=== PATIENT | female | born 2000 | race Caucasian/White ===

== ENCOUNTER 2019-12-16 15:13 | Outpatient (CLI) | payer MEDICAID ==
[2019-12-16 15:46] LABS: APPEARANCE,URINE CLEAR; BILIRUBIN,URINE NEGATIVE (NEGATIVE); COLOR,URINE YELLOW; GLUCOSE, URINE NEGATIVE (NEGATIVE); KETONES,URINE NEGATIVE (NEGATIVE); LEUKOCYTE ESTERASE,URINE NEGATIVE (NEGATIVE); NITRITE,URINE NEGATIVE (NEGATIVE); PROTEIN,URINE NEGATIVE (NEGATIVE); URINE SPECIFIC GRAVITY 1.018; UROBILINOGEN,URINE NEGATIVE mg/dL (<2.0)
[2019-12-16 16:06] LABS: URINE AMPHETAMINES SCREEN NEGATIVE; URINE BARBITURATES SCREEN NEGATIVE; URINE BENZODIAZEPINES SCREEN NEGATIVE; URINE COCAINE SCREEN NEGATIVE; URINE MARIJUANA (THC) SCREEN NEGATIVE; URINE METHADONE SCREEN NEGATIVE; URINE PHENCYCLIDINE SCREEN NEGATIVE
--- NOTE | 2019-12-16 17:10 | Non Stress Test Report ---
Non Stress Test Datetime Report Generated by CPN: 12/16/2019 17:09 DEMOGRAPHIC EGA NST: 35.3 INDICATION Indication for Study (NST) Other: LC - pelvic pressure and pain VITAL SIGNS Temperature - NST: 97.7 Pulse - NST: 86 RESP - NST: 18 NBPSYS NST: 120 NBPDIA NST: 68 URINE RESULTS Urine Protein, NST: Negative Urine Ketones - NST: Negative Urine Glucose - NST: Negative Urine Blood - NST: Negative MONITORING Monitor Explained: Monitor Explained; Test Explained; Patient Verbalized Understanding Time on Monitor: 12/16/2019 15:25 Time off Monitor: 12/16/2019 16:10 NST Duration: 45 NST INTERVENTIONS NST Interventions: PO Hydration Physician Notified NST: A. Bobo, CNM BABY A: [id number] BABY A Movement : Present Contraction Frequency : none FHR Baseline : 130 Accelerations : 15X15 Decelerations : None Variability : Moderate 6-25bpm NST Review: Meets Criteria for Reactive NST NST Review and Verified By : Nicole Zapata RN NST Results: Reactive NST REPORT Report Trigger: Send Report
== END 2019-12-16 16:22 | disposition home or self-care (01) ==
LOC: LC 15:13
PROVIDERS: ATTEND Obstetrics & Gynecology
PROC: 4A1HXCZ Monitoring of Products of Conception, Cardiac Rate, External Approach (ICD-10-PCS; principal; 2019-12-16)
DX: O47.03 False labor before 37 completed weeks of gestation, third trimester (principal); Z3A.35 35 weeks gestation of pregnancy
CPT/HCPCS: 59025; 80307; 81005

== ENCOUNTER 2020-01-09 03:34 | Inpatient (IN) | payer MEDICAID ==
[2020-01-09] MEDS ORDERED: ACETAMINOPHEN 325 MG TABLET ONE (04:54)
[2020-01-09] MEDS ORDERED: HYDROXYZINE PAMOATE 50 MG CAPSULE ONE (05:17)
[2020-01-09] MEDS ORDERED: ONDANSETRON HCL INJ/PF 4 MG/2 ML SDV ONE (05:56)
[2020-01-09 06:16] LABS: CHLAM PCR NOT DETECTED (NOT DETECT)
[2020-01-09 06:18] LABS: URINE AMPHETAMINES SCREEN NEGATIVE; URINE BARBITURATES SCREEN NEGATIVE; URINE BENZODIAZEPINES SCREEN NEGATIVE; URINE COCAINE SCREEN NEGATIVE; URINE MARIJUANA (THC) SCREEN NEGATIVE; URINE METHADONE SCREEN NEGATIVE; URINE PHENCYCLIDINE SCREEN NEGATIVE
[2020-01-09] MEDS ORDERED: ONDANSETRON HCL INJ/PF 4 MG/2 ML SDV IV ONE (06:18)
[2020-01-09] MEDS ORDERED: ACETAMINOPHEN 325 MG TABLET PO ONE (06:18)
[2020-01-09] MEDS ORDERED: HYDROXYZINE PAMOATE 50 MG CAPSULE PO ONE (06:18)
[2020-01-09 06:46] LABS: EPITHELIALS (WET MOUNT) 3+ EPITHELIALS SEEN; RBCS (WET MOUNT) RARE RBCS SEEN; T.VAGINALIS (WET MOUNT) NO TRICHOMONAS SEEN; WBCS (WET MOUNT) FEW WBCS SEEN; YEAST (WET MOUNT) NO YEAST SEEN
[2020-01-09 06:48] LABS: APPEARANCE,URINE CLOUDY; BILIRUBIN,URINE NEGATIVE (NEGATIVE); COLOR,URINE YELLOW; GLUCOSE, URINE NEGATIVE (NEGATIVE); KETONES,URINE NEGATIVE (NEGATIVE); LEUKOCYTE ESTERASE,URINE TRACE (NEGATIVE); NITRITE,URINE NEGATIVE (NEGATIVE); PROTEIN,URINE NEGATIVE (NEGATIVE); URINE SPECIFIC GRAVITY 1.017; UROBILINOGEN,URINE NEGATIVE mg/dL (<2.0)
[2020-01-09] MEDS ORDERED: MORPHINE SULFATE 10 MG/ML INJ IM ONE (07:32)
[2020-01-09] MEDS ORDERED: MORPHINE SULFATE 10 MG/ML INJ IV ONE (07:32)
[2020-01-09] MEDS ORDERED: MORPHINE SULFATE 10 MG/ML INJ ONE (07:52)
[2020-01-09] MEDS ORDERED: RINGERS SOLUTION,LACTATED 1,000 ML IV PRN (09:18)
[2020-01-09] MEDS ORDERED: RINGERS SOLUTION,LACTATED 1,000 ML IV ONE (09:18)
[2020-01-09] MEDS ORDERED: MISOPROSTOL 0.2 MG TABLET ONE ×2 (09:52→15:04)
[2020-01-09] MEDS ORDERED: OXYTOCIN 10 UNIT/ML VIAL ONE (09:52)
[2020-01-09] MEDS ORDERED: EPHEDRINE SULFATE INJ 50 MG/1 ML AMPULE ONE (09:53)
[2020-01-09] MEDS ORDERED: FENTANYL/BUPIVACAINE/NS/PF 300 MCG/150 ML RTUINJ EPI ONE (09:53)
[2020-01-09] MEDS ORDERED: BUPIVACAINE HCL 0.25 % INJ/PF (2.5 MG/1 ML) 30 ML VIAL ONE (09:54)
[2020-01-09] MEDS ORDERED: LIDOCAINE 1% INJ-PF (10 MG/ML) 30 ML SDV ONE (09:54)
[2020-01-09] MEDS ORDERED: OXYTOCIN/NORMAL SALINE 20 UNIT/1,000 ML RTUINJ ONE (09:54)
[2020-01-09] MEDS ORDERED: FENTANYL CITRATE INJ/PF 100 MCG/2 ML AMPUL ONE (09:55)
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
[2020-01-09 11:21] LABS: HEMATOCRIT 39.5 % (36.0-47.0); HEMOGLOBIN 13.3 g/dL (12.0-15.5); MEAN CORPUSCULAR HEMOGLOBIN 30.4 pg (27.0-33.4); MEAN CORPUSCULAR HGB CONC 33.7 g/dL (32.0-36.0); MEAN CORPUSCULAR VOLUME 90 fl (80-97); PLATELET COUNT 251 10^3/uL (150-450); RED BLOOD COUNT 4.37 10^6/uL (3.72-5.28); RED CELL DISTRIBUTION WIDTH 14.1 % (11.5-14.0); WHITE BLOOD COUNT 23.8 10^3/uL (4.0-10.5)
[2020-01-09 11:52] LABS: ABSOLUTE LYMPHOCYTES# (MANUAL) 1.4 10^3/uL (0.5-4.7); ABSOLUTE MONOCYTES # (MANUAL) 0.5 10^3/uL (0.1-1.4); BASOPHILS % (MANUAL) 0 % (0-2); EOSINOPHILS % (MANUAL) 0 % (0-6); LYMPHOCYTES % (MANUAL) 6 % (13-45); MONOCYTES % (MANUAL) 2 % (3-13); SEGMENTED NEUTROPHILS % (MAN) 92 % (42-78); TOTAL CELLS COUNTED 100
[2020-01-09 11:53] LABS: ANISOCYTOSIS SLIGHT; PLATELET COMMENT ADEQUATE; TEAR DROP CELLS SLIGHT
[2020-01-09] MEDS ORDERED: ACETAMINOPHEN 650 MG SUPP.RECT PR PRN (14:15)
[2020-01-09] MEDS ORDERED: DIPH/PERTUSS(ACELL)/TETANUS VAC/PF 0.5 ML SYR (>=10YO) IM PRN (14:15)
[2020-01-09] MEDS ORDERED: PSEUDOEPHEDRINE HCL 30 MG TABLET PO PRN (14:15)
[2020-01-09] MEDS ORDERED: NA PHOS,M-B/NA PHOS,DI-BA (ADULT) 133 ML ENEMA PR PRN (14:15)
[2020-01-09] MEDS ORDERED: MEASLES,MUMPS&RUBELLA VACC/PF 0.5 ML VIAL SUBCUT PRN (14:15)
[2020-01-09] MEDS ORDERED: BENZOCAINE/MENTHOL AEROSOL SPRAY 56 ML TOP PRN (14:15)
[2020-01-09] MEDS ORDERED: PROMETHAZINE HCL 25 MG SUPP.RECT PR PRN (14:15)
[2020-01-09] MEDS ORDERED: ACETAMINOPHEN WITH CODEINE #3 TABLET PO PRN ×2 (14:15)
[2020-01-09] MEDS ORDERED: GLYCERIN/WITCH HAZEL LEAF 1 EACH MED..WIPE TP PRN (14:15)
[2020-01-09] MEDS ORDERED: MAGNESIUM HYDROXIDE SUSP 30 ML UDCUP PO PRN (14:15)
[2020-01-09] MEDS ORDERED: PROMETHAZINE HCL 25 MG TABLET PO PRN (14:15)
[2020-01-09] MEDS ORDERED: DIBUCAINE 1% OINTMENT 28 GM TP PRN (14:15)
[2020-01-09] MEDS ORDERED: DIPHENHYDRAMINE HCL 25 MG CAPSULE PO PRN (14:15)
[2020-01-09] MEDS ORDERED: ZOLPIDEM TARTRATE 5 MG TABLET PO PRN (14:15)
[2020-01-09] MEDS ORDERED: OXYTOCIN/NORMAL SALINE 20 UNIT/1,000 ML RTUINJ IV PRN (14:15)
[2020-01-09] MEDS ORDERED: PROMETHAZINE HCL INJ 25 MG/1 ML VIAL IV PRN (14:15)
[2020-01-09] MEDS ORDERED: MISOPROSTOL 0.2 MG TABLET PR ONE (14:45)
[2020-01-09] MEDS ORDERED: IBUPROFEN 800 MG TABLET ONE (15:04)
[2020-01-09] MEDS ORDERED: PIPERACILLIN/TAZOBACTAM 3.375 GM VIAL IV SCH (16:00)
--- NOTE | 2020-01-09 16:09 | Delivery Summary ---
Del Sum A-C Datetime Report Generated by CPN: 01/09/2020 16:09 DELIVERY PERSONNEL DELIVERY PERSONNEL: [id number] Delivery Doctor:: Ade Hayes MD Nurse Material Preparation Worker Certified:: Caroline Ramirez CNM Labor and Delivery Nurse:: DIMAS Ruiz Labor and Delivery Nurse:: Kera Zamarripa RN Nursery Nurse:: Maday Lott RN Nursery Nurse:: Kari GARNER RN Medical Device Sales/LEAD CASTER: Rita Will CNA II Medical Device Sales/NIKITA: [facility] Additional Personnel: : Iris Espino RN MATERNAL INFORMATION Delivery Anesthesia: Epidural Medications After Delivery: Pitocin Bolus-Please Comment; Cytotec 1000mcg Per Rectum/Vagina Estimated Blood Loss (ml): 970 Delivery QBL: 970 LABOR SUMMARY EDC: 01/17/2020 00:00 No. Babies in Womb: 1 Attempted: No Labor Anesthesia: Epidural LABOR INFORMATION Reason for Induction: Not Applicable Onset of Labor: 01/09/2020 02:45 Oxytocin: N/A Group B Beta Strep: Negative Antibiotics # of Doses: 0 Steroids Given: None Reason Steroids Not Administered: Not Applicable MEMBRANES Membranes Rupture Method: Spontaneous Rupture of Membranes: 01/09/2020 12:14 Length of Rupture (hr): 1.58 Amniotic Fluid Color: Moderate Meconium Amniotic Fluid Amount: Small Amniotic Fluid Odor: None STAGES OF LABOR Stage 3 hr: 0 Stage 3 min: 2 Total Time in Labor hr: 11 Total Time in Labor min: 6 VAGINAL DELIVERY Episiotomy: None Laceration #1: Perineal Laceration Extension #1: Second Degree Laceration Repair: Yes Sponge Count Correct: N/A Sharps Count Correct: N/A BABY A INFORMATION Delivery Date/Time: 01/09/2020 13:49 Method of Delivery: Vaginal Nurse Controlled Delivery: No Born in Route : No : N/A Forceps: N/A Vacuum Extraction: Successful Shoulder Dystocia : Yes SHOULDER DYSTOCIA BABY A 1st Intervention to Resolve: McRobert's Maneuver 2nd Intervention to Resolve: Suprapubic Pressure 3rd Intervention to Resolve: Posterior Arm Release Verify NO Fundal Pressure: No Fundal Pressure Applied Shoulder Dystocia Comments: 1 min, 50 sec from head to delivery PRESENTATION/POSITION BABY A Presentation: Cephalic Cephalic Presentation: Vertex Breech Presentation: N/A PLACENTA INFORMATION BABY A Placenta Delivery Time : 01/09/2020 13:51 Placenta Method of Delivery: Spontaneous Placenta Status: Delivered SCORES BABY A Heart Rate 1 min: >100 bpm Resp Effort 1 min: Slow, Irregular Reflex Irritability 1 min: No Response Muscle Tone 1 min: Flaccid Color 1 min: Blue/Pale Resuscitation Effort 1 min: Tactile Stimulation; PPV/NCPAP SCORE 1 MIN: 3 Heart Rate 5 min: >100 bpm Resp Effort 5 min: Slow, Irregular Reflex Irritability 5 min: Grimace Muscle Tone 5 min: Some Flexion of Extremities Color 5 min: Body [place], Extremities Blue Resuscitation Effort 5 min: Tactile Stimulation; PPV/NCPAP SCORE 5 MIN: 6 Heart Rate 10 min: >100 bpm Resp Effort 10 min: Good Cry Reflex Irritability 10 min: Cough or Sneeze or Pulls Away Muscle Tone 10 min: Active Motion Color 10 min: Body [place], Extremities Blue SCORE 10 MIN: 9 INFANT INFORMATION BABY A Gestational Age at Delivery: 38.6 Gestational Status: Early Term- 37- 38.6 Weeks Infant Outcome : Liveborn Infant Condition : Stable Infant Sex: Female IDENTIFICATION BABY A Verification Date/Time: 01/09/2020 13:49 ID Band Number: [id number] Mother's Name Verified: Yes Infant RN Verifying Infant: S Tiara RN WEIGHT/LENGTH BABY A Birthweight (gm): 3855 Weight (lb): 8 Infant Weight (oz): 8 Length (in): 20.75 Infant Length (cm): 52.71 CORD INFORMATION BABY A No. Cord Vessels: 3 (Annotations: Data stored by [facility] on behalf of user) Nuchal Cord : N/A Cord Blood Taken: Yes-For Storage (Mom's Blood type +) Suction: Mouth; Nose BABY B INFORMATION : N/A SIGNATURES : I personally evaluated and examined the patient in conjunction with the P and agree with the assessment, treatment plan and disposition.
[2020-01-09 16:34] LABS: INTERNATIONAL RATION (INR) 0.99; PROTHROMBIN TIME 13.1 SEC (11.4-15.4)
[2020-01-09 16:40] LABS: HEMATOCRIT 38.8 % (36.0-47.0); HEMOGLOBIN 13.2 g/dL (12.0-15.5); MEAN CORPUSCULAR HEMOGLOBIN 30.5 pg (27.0-33.4); MEAN CORPUSCULAR HGB CONC 33.9 g/dL (32.0-36.0); MEAN CORPUSCULAR VOLUME 90 fl (80-97); PLATELET COUNT 250 10^3/uL (150-450); RED BLOOD COUNT 4.31 10^6/uL (3.72-5.28); RED CELL DISTRIBUTION WIDTH 13.9 % (11.5-14.0)
[2020-01-09 16:43] LABS: PARTIAL THROMBOPLASTIN TIME 28.3 SEC (23.5-35.8)
[2020-01-09 17:36] LABS: ABSOLUTE LYMPHOCYTES# (MANUAL) 1.3 10^3/uL (0.5-4.7); ABSOLUTE MONOCYTES # (MANUAL) 2.2 10^3/uL (0.1-1.4); BASOPHILS % (MANUAL) 0 % (0-2); EOSINOPHILS % (MANUAL) 0 % (0-6); LYMPHOCYTES % (MANUAL) 4 % (13-45); MONOCYTES % (MANUAL) 7 % (3-13); PLATELET COMMENT ADEQUATE; RBC MORPHOLOGY COMMENT NORMO-CYTIC/CHROMIC; SEGMENTED NEUTROPHILS % (MAN) 89 % (42-78); TOTAL CELLS COUNTED 100
[2020-01-09 17:38] LABS: WHITE BLOOD COUNT 31.6 10^3/uL (4.0-10.5)
[2020-01-09] MEDS: DOCUSATE SODIUM 100 MG CAPSULE PO SCH (17:48)
[2020-01-09] MEDS: FERROUS SULFATE 325 MG TABLET PO SCH (17:48)
[2020-01-09] MEDS: PIPERACILLIN SODIUM/TAZOBACTAM 3.375 GM in NORMAL SALINE 100 ML IV SCH (18:02)
[2020-01-09] MEDS: IBUPROFEN 800 MG TABLET PO SCH (23:03)
[2020-01-09] MEDS: FAMOTIDINE 20 MG TABLET PO SCH (23:04)
[2020-01-10] MEDS: PIPERACILLIN SODIUM/TAZOBACTAM 3.375 GM in NORMAL SALINE 100 ML IV SCH ×4 (00:55→18:40)
[2020-01-10 06:46] LABS: HEMATOCRIT 30.2 % (36.0-47.0); MEAN CORPUSCULAR HEMOGLOBIN 31.2 pg (27.0-33.4); MEAN CORPUSCULAR HGB CONC 34.6 g/dL (32.0-36.0); MEAN CORPUSCULAR VOLUME 90 fl (80-97); PLATELET COUNT 191 10^3/uL (150-450); RED BLOOD COUNT 3.35 10^6/uL (3.72-5.28); RED CELL DISTRIBUTION WIDTH 14.3 % (11.5-14.0)
[2020-01-10 06:47] LABS: HEMOGLOBIN 10.4 g/dL (12.0-15.5)
[2020-01-10] MEDS: IBUPROFEN 800 MG TABLET PO SCH ×3 (06:55→21:30)
--- NOTE | 2020-01-10 08:41 | Delivery Summary ---
Del Sum A-C Datetime Report Generated by CPN: 01/10/2020 08:41 DELIVERY PERSONNEL DELIVERY PERSONNEL: [id number] Delivery Doctor:: Ade Hayes MD Nurse Banjo Repairer Certified:: Caroline Ramirez CNM Labor and Delivery Nurse:: DIMAS Ruiz Labor and Delivery Nurse:: Kera Zamarripa RN Nursery Nurse:: Maday Lott RN Nursery Nurse:: Kari GARNER RN Rn Integrity/FRIT COATER: Rita Will CNA II Rn Integrity/NIKITA: [facility] Additional Personnel: : Iris Espino RN MATERNAL INFORMATION Delivery Anesthesia: Epidural Medications After Delivery: Pitocin Bolus-Please Comment; Cytotec 1000mcg Per Rectum/Vagina Estimated Blood Loss (ml): 970 Delivery QBL: 970 Provider Comments: Called to assist with delivery due to FHR down to 80's. pt with poor effort initially but improved and then reviewed with patient concern for FHR and still somewhat remote from delivery. 01/01/20 with 7#3oz. patient verbalized understanding of risks of operative vaginal delivery at c/c/+3. Kiwi placed and on next contraction pressure applied to green zone for the 3 maternal efforts with change in station noted then one pop off. At this time significant change noted and VAVD abandoned for maternal effort and then maternal effort alone delivered head. Unable to deliver remainder of body therefore suprapubic and Karly performed with still unable to deliver head. At this time Prado screw attempted and unable to reach anterior shoulder. maneuvers again attempted and still unable to reach anterior shoulder or posterior shoulder. After additional repeat of all maneuvers the posterior shoulder was then able to be delivered after delivering the right hand anterioly across body Anterior shoulder was left shoulder. Posterior shoulder was right. 1minute 50 sec dystocia. Reviewed dystocia with patient and recommended Primary section for next delivery. Placenta delivered intact spontaneously. No nuchal cord. 2nd degree perineal laceration repaired in usual fashion. Good hemostasis. Hemorrhage noted and cytotec 1000mcg per rectum given. Bleeding and uterine tone significantly improved. baby to nursery for eval. Meconium also noted. LABOR SUMMARY EDC: 01/17/2020 00:00 No. Babies in Womb: 1 Attempted: No Labor Anesthesia: Epidural LABOR INFORMATION Reason for Induction: Not Applicable Onset of Labor: 01/09/2020 02:45 Oxytocin: N/A Group B Beta Strep: Negative Antibiotics # of Doses: 0 Steroids Given: None Reason Steroids Not Administered: Not Applicable MEMBRANES Membranes Rupture Method: Spontaneous Rupture of Membranes: 01/09/2020 12:14 Length of Rupture (hr): 1.58 Amniotic Fluid Color: Moderate Meconium Amniotic Fluid Amount: Small Amniotic Fluid Odor: None STAGES OF LABOR Stage 3 hr: 0 Stage 3 min: 2 Total Time in Labor hr: 11 Total Time in Labor min: 6 VAGINAL DELIVERY Episiotomy: None Laceration #1: Perineal Laceration Extension #1: Second Degree Laceration Repair: Yes Sponge Count Correct: N/A Sharps Count Correct: N/A BABY A INFORMATION Infant Delivery Date/Time: 01/09/2020 13:49 Method of Delivery: Vaginal Method of Delivery: Vaginal Nurse Controlled Delivery: No Born in Route : No : N/A Forceps: N/A Vacuum Extraction: Successful Shoulder Dystocia : Yes SHOULDER DYSTOCIA BABY A 1st Intervention to Resolve: McRobert's Maneuver 2nd Intervention to Resolve: Suprapubic Pressure 3rd Intervention to Resolve: Posterior Arm Release Verify NO Fundal Pressure: No Fundal Pressure Applied Shoulder Dystocia Comments: 1 min, 50 sec from head to delivery PRESENTATION/POSITION BABY A Presentation: Cephalic Cephalic Presentation: Vertex Breech Presentation: N/A PLACENTA INFORMATION BABY A Placenta Delivery Time : 01/09/2020 13:51 Placenta Method of Delivery: Spontaneous Placenta Status: Delivered SCORES BABY A Heart Rate 1 min: >100 bpm Resp Effort 1 min: Slow, Irregular Reflex Irritability 1 min: No Response Muscle Tone 1 min: Flaccid Color 1 min: Blue/Pale Resuscitation Effort 1 min: Tactile Stimulation; PPV/NCPAP SCORE 1 MIN: 3 Heart Rate 5 min: >100 bpm Resp Effort 5 min: Slow, Irregular Reflex Irritability 5 min: Grimace Muscle Tone 5 min: Some Flexion of Extremities Color 5 min: Body [place], Extremities Blue Resuscitation Effort 5 min: Tactile Stimulation; PPV/NCPAP SCORE 5 MIN: 6 Heart Rate 10 min: >100 bpm Resp Effort 10 min: Good Cry Reflex Irritability 10 min: Cough or Sneeze or Pulls Away Muscle Tone 10 min: Active Motion Color 10 min: Body [place], Extremities Blue SCORE 10 MIN: 9 INFORMATION BABY A Gestational Age at Delivery: 38.6 Gestational Status: Early Term- 37- 38.6 Weeks Infant Outcome : Liveborn Infant Condition : Stable Infant Sex: Female Infant Sex: Female IDENTIFICATION BABY A Infant Verification Date/Time: 01/09/2020 13:49 ID Band Number: [id number] Mother's Name Verified: Yes Infant RN Verifying : Jerald Menjivar RN WEIGHT/LENGTH BABY A Birthweight (gm): 3855 Weight (lb): 8 Weight (oz): 8 Length (in): 20.75 Infant Length (cm): 52.71 CORD INFORMATION BABY A No. Cord Vessels: 3 (Annotations: Data stored by [facility] on behalf of user) Nuchal Cord : N/A Cord Blood Taken: Yes-For Storage (Mom's Blood type +) Infant Suction: Mouth; Nose ASSESSMENT BABY A Skin to Skin: No BABY B INFORMATION : N/A SIGNATURES Signature: with User ID: [email or web address] : Grace personally evaluated and examined the patient in conjunction with the P and agree with the assessment, treatment plan and disposition.
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
[2020-01-10] MEDS: DOCUSATE SODIUM 100 MG CAPSULE PO SCH ×2 (09:57→18:40)
[2020-01-10] MEDS: PRENATAL VITAMIN W DHA CAPSULE PO SCH (09:57)
[2020-01-10] MEDS: SENNOSIDES/DOCUSATE 8.6-50 MG 1 EACH TABLET PO SCH (09:57)
[2020-01-10] MEDS: FERROUS SULFATE 325 MG TABLET PO SCH ×2 (09:57→18:40)
[2020-01-10] MEDS: FAMOTIDINE 20 MG TABLET PO SCH ×2 (09:58→21:30)
[2020-01-10 11:02] LABS: PATH REVIEW PATHOLOGIST REVIEWED
[2020-01-11] MEDS: IBUPROFEN 800 MG TABLET PO SCH (06:45)
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
[2020-01-11 10:02] VITALS: BP 137/73
[2020-01-11] MEDS: FERROUS SULFATE 325 MG TABLET PO SCH (10:10)
[2020-01-11] MEDS: FAMOTIDINE 20 MG TABLET PO SCH (10:11)
[2020-01-11] MEDS: SENNOSIDES/DOCUSATE 8.6-50 MG 1 EACH TABLET PO SCH (10:11)
[2020-01-11] MEDS: DOCUSATE SODIUM 100 MG CAPSULE PO SCH (10:11)
[2020-01-11] MEDS: PRENATAL VITAMIN W DHA CAPSULE PO SCH (10:11)
== END 2020-01-11 13:45 | disposition home or self-care (01) | DRG 807 ==
LOC: LC 03:34 → LR 09:19 → 2S 16:13
PROVIDERS: ADMIT Student in an Organized Health Care Education/Training Program; ATTEND Student in an Organized Health Care Education/Training Program
PROC: 10D07Z6 Extraction of Products of Conception, Vacuum, Via Natural or Artificial Opening (ICD-10-PCS; principal; 2020-01-09)
PROC: 0KQM0ZZ Repair Perineum Muscle, Open Approach (ICD-10-PCS; 2020-01-09)
PROC: 3E0234Z Introduction of Serum, Toxoid and Vaccine into Muscle, Percutaneous Approach (ICD-10-PCS; 2020-01-11)
DX: O24.420 Gestational diabetes mellitus in childbirth, diet controlled (principal); Z37.0 Single live birth; O66.0 Obstructed labor due to shoulder dystocia; O76 Abnormality in fetal heart rate and rhythm complicating labor and delivery; O70.1 Second degree perineal laceration during delivery; Z23 Encounter for immunization; Z3A.38 38 weeks gestation of pregnancy
CPT/HCPCS: 36415; 80307; 81005; 84112; 85025; 85027; 85610; 85730; 86592; 86850; 86900; 86901; 87210; 87491; 87591; 88307; 90715; J2270; J2405; J2543; J2590; J3010; J3490; J7050

== ENCOUNTER 2020-01-13 22:36 | Emergency (ER) | payer MEDICAID ==
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
[2020-01-13] MEDS ORDERED: ACETAMINOPHEN 325 MG TABLET PO ONE (23:13)
[2020-01-14 00:06] LABS: ABSOLUTE EOSINOPHILS # (AUTO) 0.4 10^3/uL (0.0-0.6); ABSOLUTE MONOCYTES (AUTO) 0.6 10^3/uL (0.1-1.4); ABSOLUTE NEUT (AUTO) 8.4 10^3/uL (1.7-8.2); BASOPHILS % (AUTO) 0.3 % (0-2); EOSINOPHILS % (AUTO) 2.8 % (0-6); HEMATOCRIT 35.5 % (36.0-47.0); HEMOGLOBIN 12.1 g/dL (12.0-15.5); LYMPHOCYTES % (AUTO) 23.8 % (13-45); MEAN CORPUSCULAR HEMOGLOBIN 30.8 pg (27.0-33.4); MEAN CORPUSCULAR VOLUME 91 fl (80-97); MONOCYTES % (AUTO) 5.2 % (3-13); PLATELET COUNT 301 10^3/uL (150-450); RED BLOOD COUNT 3.92 10^6/uL (3.72-5.28); RED CELL DISTRIBUTION WIDTH 14.7 % (11.5-14.0); SEGMENTED NEUTROPHILS % (AUTO) 67.9 % (42-78); TOTAL CELLS COUNTED % (AUTO) 100 %; WHITE BLOOD COUNT 12.4 10^3/uL (4.0-10.5)
[2020-01-14 00:14] LABS: APPEARANCE,URINE SLIGHTLY-CLOUDY; BILIRUBIN,URINE NEGATIVE (NEGATIVE); COLOR,URINE YELLOW; GLUCOSE, URINE NEGATIVE (NEGATIVE); KETONES,URINE NEGATIVE (NEGATIVE); PROTEIN,URINE NEGATIVE (NEGATIVE); URINE SPECIFIC GRAVITY 1.016; UROBILINOGEN,URINE NEGATIVE mg/dL (<2.0)
[2020-01-14 00:23] LABS: ALBUMIN 3.4 g/dL (3.5-5.0); ALKALINE PHOSPHATASE 146 U/L (38-126); ANION GAP 9 (5-19); ASPARTATE AMINO TRANSFERASE 44 U/L (14-36); BILIRUBIN,DIRECT 0.3 mg/dL (0.0-0.4); BILIRUBIN,TOTAL 0.4 mg/dL (0.2-1.3); BLOOD UREA NITROGEN 12 mg/dL (7-20); CARBON DIOXIDE 26 mmol/L (22-30); CHLORIDE 104 mmol/L (98-107); GLUCOSE 91 mg/dL (75-110); POTASSIUM 3.9 mmol/L (3.6-5.0)
[2020-01-14] MEDS ORDERED: ACETAMINOPHEN 325 MG TABLET PO ONE (02:31)
--- NOTE | 2020-01-14 03:23 | RADIOLOGY REPORT (SQ) ---
EXAM DESCRIPTION: US PELVIS COMPLETED DATE/TME: 01/14/2020 02:21 CLINICAL HISTORY: 19 years Female, post 4days with vaginal bleeding Comparison: None. Technique: Transabdominal. LIMITATIONS: None. FINDINGS: 15-cm uterus, 1.8 cm thick heterogeneous endometrial stripe including a 2.3 cm hypoechoic region/clot, 4-cm right ovary, and nonvisualized left ovary appear otherwise unremarkable in size, shape, echotexture, and vascularity. No free fluid. IMPRESSION: 1. 15 cm post gravid uterus with 1.8 cm thickened heterogeneous endometrial cavity probably due to hemorrhage-clot. Cannot exclude retained products of conception. 2. Nonvisualized left ovary.
--- NOTE | 2020-01-14 05:16 | ER Document Report ---
Entered by DUSTIN ONTIVEROS SCRIBE 01/14/20 0220 Acting as scribe for:SHERIN JOINER MD ED General - General Chief Complaint: Abdominal Pain Stated Complaint: VAGINAL BLEEDING,ABDOMINAL AND VAGINAL PAIN Time Seen by Provider: 01/13/20 23:09 Primary Care Provider: DANIA MORALES MD [Primary Care Provider] - Follow up as needed Mode of Arrival: Ambulatory Information source: Patient Notes: 19-year-old female presents to the emergency department 4 days with abdominal pain and vaginal bleeding. Patient stated that she received stitches for perineal tear during labor and was told that if she soiled a pad faster than an hour or had any blood clots to go to the ED. Patient explained that she has had pain and blood clots every time she uses the bathroom. Patient mentions that she has not been able to rest due to significant other working. Patient states that she has been pushing, lifting and pulling the past few days. TRAVEL OUTSIDE OF THE [place] IN LAST 30 DAYS: No - Related Data Allergies/Adverse Reactions: No Known Allergies Allergy (Verified 01/09/20 06:17) Home Medications: zoloft Past Medical History - General Information source: Patient - Social History Smoking Status: Never Smoker Cigarette use (# per day): No Chew tobacco use (# tins/day): No Frequency of alcohol use: None Drug Abuse: None Lives with: Family Family History: Reviewed & Not Pertinent Patient has suicidal ideation: No Patient has homicidal ideation: No GI Medical History: Reports: Hx Gastroesophageal Reflux Disease Skin Medical History: Reports Hx Eczema Psychiatric Medical History: Reports: Hx Anxiety, Hx Depression - Manic Surgical Hx: Negative Review of Systems - Review of Systems Constitutional: No symptoms reported EENT: No symptoms reported Cardiovascular: No symptoms reported Respiratory: No symptoms reported Gastrointestinal: See HPI, Abdominal pain Genitourinary: No symptoms reported Female Genitourinary: See HPI, Vaginal bleeding Musculoskeletal: No symptoms reported Skin: No symptoms reported Hematologic/Lymphatic: No symptoms reported Neurological/Psychological: See HPI, Anxiety -: Yes All other systems reviewed and negative Physical Exam - Vital signs Vitals: Temp Pulse Resp BP Pulse Ox 98.6 F 97 20 131/89 H 97 01/13/20 22:41 01/13/20 22:41 01/13/20 22:41 01/13/20 22:41 01/13/20 22:41 - Notes Notes: Physical Exam: General: Alert, appears tearful and uncomfortable. Anxious. HEENT: Normocephalic. Atraumatic. PERRL. Extraocular movements intact. Oropharynx clear. Neck: Supple. Non-tender. Respiratory: No respiratory distress. Clear and equal breath sounds bilaterally. Cardiovascular: Regular rate and rhythm. Abdominal: RLQ tenderness to palpation. No distension. Normal Bowel Sounds. Back: No gross abnormalities. Extremities: Moves all four extremities. Upper extremities: Normal inspection. Normal ROM. Lower extremities: Normal inspection. No edema. Normal ROM. Neurological: Normal cognition. AAOx4. Normal speech. Skin: Warm. Dry. Normal color. Course - Re-evaluation Re-evalutation: 01/14/20 05:11 Patient resting comfortably in bed not showing any signs of distress at this time and for the past 2+ hours patient has not had any further vaginal bleeding. Patient's pain has subsided as well. With Tylenol. - Vital Signs Vital signs: Temp Pulse Resp BP Pulse Ox 98.0 F 80 16 134/86 H 99 01/14/20 03:17 01/14/20 03:17 01/14/20 03:17 01/14/20 03:17 01/14/20 03:17 - Laboratory Result Diagrams: 01/13/20 23:50 01/13/20 23:50 Laboratory results interpreted by me: 01/13/20 01/13/20 01/13/20 23:50 23:50 23:50 WBC 12.4 H Hct 35.5 L RDW 14.7 H Absolute Neuts (auto) 8.4 H AST 44 H ALT 45 H Alkaline Phosphatase 146 H Albumin 3.4 L Urine Blood LARGE H Leukocyte Esterase Rfl LARGE H Urine Ascorbic Acid 20 H 01/14/20 05:12 Patient's urine appears contaminated due to her recent state. Hemoglobin is stable at this time at 12.4. Patient's abdominal pain has resolved resolved. - Diagnostic Test Radiology reviewed: Image reviewed, Reports reviewed Radiology results interpreted by me: 01/14/20 05:12 Transvaginal pelvic ultrasound non-OB shows the uterus is enlarged due to recent state. There is a small about a 2 cm heterogeneous tissue that most likely is a clot versus retained products of conception. Most likely this is a clot inasmuch as patient did have an episiotomy and and reports that it started bleeding tonight but the bleeding has resolved. Discharge - Discharge Clinical Impression: hemorrhage of vagina Condition: Stable Disposition: HOME, SELF-CARE Additional Instructions: You develop a bleed in the last 24 hours. Your hemoglobin hematocrit is stable and therefore is no need of any transfusion of blood at this time you are hemodynamically stable. Your activity needs to be decreased where you really do not push pull lift any heavy objects and and get some bed rest as much as you can is much as you are now taking care of your young with breast- feeding. Tylenol may be taken as needed if there is any further pain. The ultrasound of your pelvis disclosed a about a 2 cm heterogeneous tissue that could be products of conception that have been retained versus a clot. My belief is that it is a blood clot residual from your hemorrhage. Do follow-up with your [facility] physician within the next 1 to 2 days. Return to the emergency department if there is any fever chills worsening bleeding. Referrals: DANIA MORALES MD [Primary Care Provider] - Follow up as needed I personally performed the services described in the documentation, reviewed and edited the documentation which was dictated to the scribe in my presence, and it accurately records my words and actions.
[2020-01-14 06:05] VITALS: BP 132/95
== END 2020-01-14 06:01 | disposition home or self-care (01) ==
LOC: ER 22:36
DX: O72.1 Other immediate postpartum hemorrhage (principal); O99.89 Other specified diseases and conditions complicating pregnancy, childbirth and the puerperium; R10.9 Unspecified abdominal pain
CPT/HCPCS: 99284; 36415; 87086; 85025; 80053; 81001; 76856; J3490

== ENCOUNTER 2020-04-23 02:20 | Emergency (ER) | payer MEDICAID ==
[2020-04-23 02:28] VITALS: BP 145/97
[2020-04-23] MEDS ORDERED: BUPIVACAINE HCL 0.75% INJ/PF (7.5 MG/1 ML) 10 ML SDV INJ ONE (03:32)
[2020-04-23] MEDS ORDERED: PENICILLIN V POTASSIUM 500 MG TABLET PO ONE (03:32)
--- NOTE | 2020-04-23 03:35 | ER Document Report ---
HPI - HPI Time Seen by Provider: 04/23/20 03:31 Pain Level: 4 Context: Patient is a 19-year-old female that comes the emergency department for chief complaint of dental pain. Pain is in the left lower jaw, she states she has a known wisdom tooth and a broken molar in the back, over the past couple of days pain started radiating up her jaw on the left side towards her ear. She denies sore throat, neck pain, fever, or any other complaints. She is currently breast-feeding. She is taking [id number] medication such as Tylenol but no prescribe medications. Past medical history of anxiety. - REPRODUCTIVE Reproductive: DENIES: : Past Medical History - General Information source: Patient - Social History Smoking Status: Never Smoker Drug Abuse: None Lives with: Family Family History: Reviewed & Not Pertinent Patient has homicidal ideation: No GI Medical History: Reports: Hx Gastroesophageal Reflux Disease Skin Medical History: Reports Hx Eczema Psychiatric Medical History: Reports: Hx Anxiety, Hx Depression - Manic - Immunizations Immunizations up to date: Yes Hx Diphtheria, Pertussis, Tetanus Vaccination: Yes Vertical Provider Document - CONSTITUTIONAL General Appearance: WD/WN, Mild Distress - Patient appears mildly uncomfortable and also anxious but she is not in severe distress - INFECTION CONTROL TRAVEL OUTSIDE OF THE [place] IN LAST 30 DAYS: No - HEENT HEENT: Atraumatic, Normocephalic, PERRLA. negative: Conjuctival Injection, Pharyngeal Exudate, Pharyngeal Tenderness, Pharyngeal Erythema, Tympanic Membran e Red, Tympanic Membrane Bulging Mouth Diagram: 1 - Dental caries with surrounding erythema and tenderness. No induration or fluctuance. No abscess noted. Otherwise unremarkable oral pharyngeal exam - NECK Neck: Normal Inspection - No evidence of Benson's angina/submandibular swelling. negative: Lymphadenopathy-Left, Lymphadenopathy-Right - RESPIRATORY Respiratory: Breath Sounds Normal, No Respiratory Distress - CARDIOVASCULAR Cardiovascular: Regular Rate, Regular Rhythm - GI/ABDOMEN Gastrointestinal: Abdomen Soft, Abdomen Non-Tender. negative: Abdomen Tender - BACK Back: Normal Inspection - MUSCULOSKELETAL/EXTREMETIES Musculoskeletal/Extremeties: MAEW, FROM, Non-Tender - NEURO Level of Consciousness: Awake, Alert, Appropriate Motor/Sensory: No Motor Deficit, No Sensory Deficit - DERM Integumentary: Warm, Dry, No Rash Course - Re-evaluation Re-evalutation: Evaluation is consistent with a dental infection but no noted abscess. No other concerning findings. Discussed options with patient, patient elected for dental block. She was placed on antibiotics. She tolerated the dental block very well and had excellent results with this. Discussed importance of dental follow-up, patient states she already has a dentist to follow-up with. Discussed return precautions in detail. Patient states understanding and agreement. Patiently was initially anxious and was mildly hypertensive, unfortunately this was not repeated before discharge. Patient is 3 months . - Vital Signs Vital signs: Temp Pulse Resp BP Pulse Ox 97.3 F 89 16 145/97 H 100 04/23/20 03:23 04/23/20 02:25 04/23/20 02:25 04/23/20 02:25 04/23/20 02:25 Procedures - Additional Procedures Left inferior alveolar dental block Additional Procedures: Other - Left inferior alveolar dental block performed using 3 ml of 0.75% bupivacaine. Aspirated the area at the shelf before placing the anesthesia. Patient had excellent results, no significant bleeding, no complications. Discharge - Discharge Clinical Impression: Pain, dental Condition: Stable Disposition: HOME, SELF-CARE Additional Instructions: Your evaluation is most consistent with a developing dental infection. You have been placed on antibiotics for this, take as prescribed to completion. Follow- up with the dentist or this will continue to occur. Return if you worsen including severe worsening pain, swelling of the face, or any other concerning or worsening symptoms. Prescriptions: Penicillin V Potassium [Penicillin Vk 500 mg Tablet] 500 mg PO BID #20 tablet
== END 2020-04-23 04:50 | disposition home or self-care (01) ==
LOC: ER 02:20
DX: K02.9 Dental caries, unspecified (principal); K08.89 Other specified disorders of teeth and supporting structures; I10 Essential (primary) hypertension
CPT/HCPCS: 99282; 64400; J3490 ×2

== ENCOUNTER 2020-11-04 23:27 | Emergency (ER) | payer MEDICAID ==
[2020-11-04 23:58] VITALS: BP 111/77
[2020-11-05 01:29] LABS: ABSOLUTE EOSINOPHILS # (AUTO) 0.1 10^3/uL (0.0-0.6); ABSOLUTE LYMPHOCYTES (AUTO) 2.6 10^3/uL (0.5-4.7); ABSOLUTE MONOCYTES (AUTO) 0.6 10^3/uL (0.1-1.4); ABSOLUTE NEUT (AUTO) 8.7 10^3/uL (1.7-8.2); BASOPHILS % (AUTO) 0.3 % (0-2); HEMATOCRIT 43.1 % (36.0-47.0); HEMOGLOBIN 14.3 g/dL (12.0-15.5); LYMPHOCYTES % (AUTO) 21.7 % (13-45); MEAN CORPUSCULAR HEMOGLOBIN 28.5 pg (27.0-33.4); MEAN CORPUSCULAR HGB CONC 33.2 g/dL (32.0-36.0); MEAN CORPUSCULAR VOLUME 86 fl (80-97); MONOCYTES % (AUTO) 5.3 % (3-13); PLATELET COUNT 259 10^3/uL (150-450); RED BLOOD COUNT 5.02 10^6/uL (3.72-5.28); RED CELL DISTRIBUTION WIDTH 12.6 % (11.5-14.0); SEGMENTED NEUTROPHILS % (AUTO) 71.7 % (42-78); TOTAL CELLS COUNTED % (AUTO) 100 %; WHITE BLOOD COUNT 12.2 10^3/uL (4.0-10.5)
[2020-11-05 01:37] LABS: APPEARANCE,URINE CLEAR; BILIRUBIN,URINE NEGATIVE (NEGATIVE); COLOR,URINE YELLOW; GLUCOSE, URINE NEGATIVE (NEGATIVE); KETONES,URINE NEGATIVE (NEGATIVE); LEUKOCYTE ESTERASE,URINE TRACE (NEGATIVE); NITRITE,URINE NEGATIVE (NEGATIVE); PROTEIN,URINE NEGATIVE (NEGATIVE); URINE SPECIFIC GRAVITY 1.024; UROBILINOGEN,URINE NEGATIVE mg/dL (<2.0)
[2020-11-05 01:40] LABS: ALBUMIN 4.7 g/dL (3.5-5.0); ALKALINE PHOSPHATASE 122 U/L (38-126); ANION GAP 11 (5-19); ASPARTATE AMINO TRANSFERASE 23 U/L (14-36); BILIRUBIN,DIRECT 0.1 mg/dL (0.0-0.4); BILIRUBIN,TOTAL 0.5 mg/dL (0.2-1.3); BLOOD UREA NITROGEN 13 mg/dL (7-20); CALCIUM 9.8 mg/dL (8.4-10.2); CARBON DIOXIDE 28 mmol/L (22-30); CHLORIDE 104 mmol/L (98-107); GLUCOSE 88 mg/dL (75-110); POTASSIUM 3.7 mmol/L (3.6-5.0); TOTAL PROTEIN 8.3 g/dL (6.3-8.2)
== END 2020-11-05 02:43 | disposition left against medical advice (07) ==
LOC: ER 23:27
DX: Z53.21 Procedure and treatment not carried out due to patient leaving prior to being seen by health care provider (principal)